=== PATIENT | female | born 1995 | race African-American/Black ===

== ENCOUNTER 2023-04-28 11:49 | Emergency (ER) | payer MEDICAID ==
[~2023-04-28] VITALS: Ht 162.6 cm; Wt 64.0 kg
[2023-04-28 11:58] VITALS: TEMP 98.7; O2SAT 100
[2023-04-28] MEDS ORDERED: FAMOTIDINE 20MG/2ML VIAL IV STA (12:10)
[2023-04-28] MEDS ORDERED: ONDANSETRON HCL 4MG/2ML INJ IV STA (12:10)
[2023-04-28] MEDS ORDERED: SODIUM CHLORIDE 0.9% 1,000 ML IV ONE (12:15)
[2023-04-28 12:37] LABS: BASOPHILS % 0.5 % (0.0-2.0); HEMATOCRIT. 39.8 % (36.0-48.0); LYMPHOCYTES % 13.1 % (20.0-50.0); MEAN CORPUSCULAR HEMOGLOBIN 27.6 pg (28.0-32.0); MEAN CORPUSCULAR HGB CONC 32.6 g/dL (31.0-37.0); MEAN CORPUSCULAR VOLUME 84.6 fL (81.0-99.0); MEAN PLATELET VOLUME 7.8 fl (7.4-10.4); MONOCYTES % 8.1 % (2.0-8.0); NEUTROPHILS % 78.3 % (40.0-76.0); PLATELET 278 x1000/uL (130-400); RED CELL DISTRIBUTION WIDTH 12.8 % (11.6-14.6); WHITE BLOOD COUNT 11.3 x1000/uL (4.5-11.0)
[2023-04-28 12:49] LABS: CHLORIDE 101 mEq/L (98-107); INDEX HEMOLYSI 1 (1-3); INDEX ICTERIC 1 (1-4); INDEX LIPEMIC 1 (1-3); POTASSIUM 3.5 mEq/L (3.5-5.1); SODIUM 136 mEq/L (136-145)
[2023-04-28 13:10] LABS: HCG SCREEN NEGATIVE
[2023-04-28 13:59] LABS: ALANINE AMINOTRANSFERASE 22 IU/L (13-61); ALBUMIN 4.6 g/dL (3.4-5.0); ASPARTATE AMINOTRANSFERASE 16 IU/L (15-37); BILIRUBIN TOTAL 0.6 mg/dL (0.1-1.0); CALCIUM 9.9 mg/dL (8.5-10.1); GLUCOSE 92 mg/dL (70-105); PROTEIN TOTAL 9.1 g/dL (6.0-8.3); UREA NITROGEN BLOOD 15 mg/dL (7-21)
[2023-04-28] MEDS ORDERED: METOCLOPRAMIDE HCL 10MG/2ML VIAL IV ONE (15:30)
[2023-04-28 15:47] LABS: CARBON DIOXIDE 23 mEq/L (21-32)
[2023-04-28] MEDS ORDERED: METO-293 MT (17:39)
[2023-04-28 18:57] VITALS: BP 118/78; PULSE 82; RESP 20
== END 2023-04-28 18:58 | disposition home or self-care (01) ==
LOC: ER 11:49
DX: R10.13 Epigastric pain (principal); R11.2 Nausea with vomiting, unspecified
CPT/HCPCS: 80053; 81025; 84703; 83690; 85025; 36415; 96361; 96374; 96375; 99284; J3490; J2765; J2405; J7030; Z7610 ×2; C1893

== ENCOUNTER 2024-09-05 19:14 | Emergency (ER) | payer SELFPAY ==
[~2024-09-05] VITALS: Ht 160 cm; Wt 60.4 kg
[~2024-09-05 19:14] MED LIST: METO-293 MT
[2024-09-05 20:08] VITALS: TEMP 36.9; O2SAT 100
[2024-09-05] MEDS: ONDANSETRON 4MG ODT PO STA (22:26)
[2024-09-05] MEDS: KETOROLAC 30MG/ML VIAL IM STA (22:26)
[2024-09-05 22:36] LABS: HEMATOCRIT. 38.7 % (36.0-48.0); HEMOGLOBIN. 12.4 g/dL (12.0-16.0); MEAN CORPUSCULAR HEMOGLOBIN 27.4 pg (28.0-32.0); MEAN CORPUSCULAR HGB CONC 32.1 g/dL (31.0-37.0); MEAN CORPUSCULAR VOLUME 85.6 fL (81.0-99.0); MEAN PLATELET VOLUME 8.1 fl (7.4-10.4); PLATELET 277 x1000/uL (130-400); RED BLOOD CELL COUNT 4.53 mill/uL (4.2-5.4); WHITE BLOOD COUNT 16.9 x1000/uL (4.5-11.0)
[2024-09-05 22:37] LABS: DIFFERENTIAL COMMENT 1
[2024-09-05 22:44] LABS: CHLORIDE 102 mEq/L (98-107); POTASSIUM 4.1 mEq/L (3.5-5.1); SODIUM 141 mEq/L (136-145)
[2024-09-05 22:45] LABS: CARBON DIOXIDE 27 mEq/L (21-32)
[2024-09-05 22:46] LABS: CALCIUM 10.5 mg/dL (8.7-10.4)
[2024-09-05 22:48] LABS: HCG SCREEN NEGATIVE
[2024-09-05 22:51] LABS: CREATININE 0.8 mg/dL (0.6-1.0); GLUCOSE 110 mg/dL (70-105); UREA NITROGEN BLOOD 10 mg/dL (9-23)
[2024-09-05 22:52] LABS: ALANINE AMINOTRANSFERASE 18 IU/L (10-49); ALBUMIN 5.1 g/dL (3.2-4.8); ASPARTATE AMINOTRANSFERASE 16 IU/L (<34)
[2024-09-05 22:53] LABS: BILIRUBIN DIRECT 0.2 mg/dL (<=3.0); BILIRUBIN TOTAL 0.7 mg/dL (0.1-1.0); PLATELET ESTIMATE NORMAL; PROTEIN TOTAL 8.7 g/dL (6.0-8.3)
[2024-09-06] MEDS ORDERED: DIAZ5TAB MT (02:06)
[2024-09-06] MEDS: ONDANSETRON 4MG ODT PO ONE (02:23)
[2024-09-06 02:25] VITALS: BP 133/77; PULSE 77; RESP 18; O2SAT 98
== END 2024-09-06 02:25 | disposition home or self-care (01) ==
LOC: ER 19:14
DX: M62.830 Muscle spasm of back (principal); R11.2 Nausea with vomiting, unspecified; J45.909 Unspecified asthma, uncomplicated
CPT/HCPCS: 99285; 80076; 80048; 84703; 83690; 85025; 36415; 96372; 74176; J1885; Q0162 ×2